=== PATIENT | male | born 1945 | race Caucasian/White ===

== ENCOUNTER 2016-07-20 09:25 | Outpatient (CLI) | payer OTHER ==
--- NOTE | 2016-07-20 11:14 | DIAGNOSTIC IMAGING REPORT ---
PROCEDURE: MR CERVICAL SPINE W/O CONT INDICATION: CHRONIC NECK PAIN TECHNIQUE: T1, T2, and STIR sagittal sequences. T2 and GRE axial sequences. Bilateral T2 sagittal obliques. COMPARISON: 01/28/2006 FINDINGS: Alignment and curvature: Grade 1 retrolisthesis C5 ounce six, new since the prior study. Vertebral bodies: Degenerative sclerosis of the dense, stable. Uncovertebral joint hypertrophy and posterior spurring at C3-4, C5-6, and C6-7. Vertebral bodies are normal in height and marrow signal. No suspicious osseous edema. Disc spaces: Mild disc height loss C5-6. Spinal canal: Posterior fossa structures are normal. The spinal cord is normal in caliber and signal. No unusual central canal mass. Paraspinal soft tissues: Normal. C2-3: Moderate left-sided uncovertebral joint hypertrophy/disc osteophyte complex causing mild left foraminal narrowing. Minor progression. C3-4: Small central disc herniation with disc material extruding cranial and caudal to the disc line. There is moderate prominent focal left paracentral/foraminal disc osteophyte complex and mild facet arthropathy together causing a severe left foraminal narrowing. Mild right foraminal narrowing. These changes have mildly progressed, but were present on the previous study. C4-5: Mild bilateral facet arthropathy. Mild circumferential disc osteophyte complex. Mild to moderate bilateral foraminal narrowing, chronic. Diffuse disc osteophyte complex causes mild central canal narrowing. This has minimally worsened since the prior study. C5-6: Moderate posterior broad-based disc osteophyte complex and uncovertebral joint hypertrophy. Moderate bilateral facet arthropathy. There is a moderate central canal narrowing and flattening of the cord shape but no abnormal cord signal. The central canal is 10 mm. Disc bulge has minimally progressed compared to the prior study. Moderate to severe bilateral foraminal narrowing, left worse than right. Stable compared to the previous study. C6-7: Mild diffuse circumferential disc osteophyte complex and mild to moderate facet arthropathy. Focal left foraminal disc herniation causing severe left foraminal narrowing. This is new since the previous study. C7-T1: Small focal central herniation with cranial extrusion of disc material centrally without effacement of the CSF. Mild posterior disc osteophyte complex and left-sided uncovertebral joint hypertrophy with only mild left foraminal narrowing. IMPRESSION: 1. New focal left foraminal disc herniation at C6-7 causing severe left foraminal narrowing. Correlate with left C7 radiculopathy. 2. Moderately severe bilateral foraminal narrowing at C5-6 secondary to chronic degenerative disc endplate changes. 3. Chronic severe left foraminal narrowing at C3-4. Correlate with chronic left C4 radiculopathy. 4. Mild progression of degenerative changes at C2-3, C3-4, C4-5, C5-6 (disc bulge). 5. Moderate central canal narrowing at C5-6, slightly worse, but no abnormal cord signal.
== END 2016-07-20 23:00 ==
LOC: MRI SRH 09:25
DX: M50.221 Other cervical disc displacement at C4-C5 level (principal); M50.222 Other cervical disc displacement at C5-C6 level; M50.223 Other cervical disc displacement at C6-C7 level